=== PATIENT | female | born 1975 | race Hispanic/Latino ===

== ENCOUNTER 2018-11-07 09:13 | Outpatient (CLI) | payer BC | END 2018-11-07 09:14 | disposition home or self-care (01) | LOC: RAD 09:13 ==

== ENCOUNTER 2018-12-07 08:50 | Outpatient (CLI) | payer BC | END 2018-12-07 08:51 | disposition home or self-care (01) | LOC: RAD 08:50 | DX: M25.522 Pain in left elbow (principal) ==